=== PATIENT | female | born 1990 | race Caucasian/White ===

== ENCOUNTER 2024-11-11 19:53 | Emergency (ER) | payer BC, OTHER ==
[~2024-11-11] VITALS: Ht 167.6 cm; Wt 65.1 kg
[2024-11-11 20:32] VITALS: TEMP 97
--- NOTE | 2024-11-11 20:48 | Physician Documentation ---
History of Present Illness ~ Chief Complaint: Headache Stated Complaint: MIGRAINE Time Seen by MD: 20:51 OK to notify your PCP?: Yes Source: patient Mode of Arrival: POV Exam Limitations: no limitations HPI 34-year-old female presenting with left-sided migraine since 1:00 p.m. today. She has photophobia and nausea. She has a history of migraines and states this feels like her normal migraines. She attempted to take 1 dose of Imitrex at home but vomited it up. She also took Excedrin at home with no relief. She used to take Nurtec but that stopped working. She has been seen in the emergency department last year for migraines given IV fluids and a migraine cocktail which worked. Medication Reconciliation Allergies: Coded Allergies: No Known Allergies (Unverified , 11/11/24) Physical Exam Vital Signs: RN Vital Signs have been reviewed: Yes, Temperature: 97.0, Source: Temporal, Heart Rate: 101, Respiratory Rate: 16, BP: 122/81, Pulse Oximetry: 99, Weight: 65.100 Oxygen Flow Rate: 0 Pulse Oximetry Reflects: adequate oxygenation Physical Exam General: Alert, no apparent distress. HEENT: PERRL, EOMI, no injection, moist mucous membranes. Neck: Full range of motion. Respiratory: Lungs clear, no respiratory distress. Chest: No accessory muscle use. Cardiovascular: Regular rate and rhythm, no murmurs. Extremities: Normal range of motion, no deformity. Neurologic: Oriented x4. Psychiatric: Normal mood and affect. Skin: Normal color, warm and dry. No edema, no ecchymosis. Progress Results/Orders Results/Orders Orders - DENISA CRANE Saline Lock (11/11/24 ) Completed Orders - DENISA CRANE Diphenhydramine Inj (Benadryl Inj.) (11/11/24 20:55) Prochlorperazine Inj (Compazine Inj) (11/11/24 20:55) Dexamethasone Inj (Decadron 10mg/Ml Inj) (11/11/24 20:51) Normal Saline 1000ml (Sodium Chloride 10 (11/11/24 20:55) Medications Received in ER Medications (Trade) Dose Ordered Sig/Leni Route PRN Reason Start Time Stop Time Status Last Admin Dose Admin (Benadryl inj.) 50 mg ONCE ONCE IV 11/11/24 20:55 11/11/24 20:56 DC 11/11/24 21:10 50 MG (Compazine inj) 10 mg ONCE ONCE IV 11/11/24 20:55 11/11/24 20:56 DC 11/11/24 21:12 10 MG (Decadron 10mg/ ml inj) 10 mg ONCE STAT IV 11/11/24 20:51 11/11/24 20:53 DC 11/11/24 21:15 10 MG (sodium chloride 1000ml IV soln) 1,000 ml ONCE ONCE IVB 11/11/24 20:55 11/11/24 20:56 DC 11/11/24 21:09 1,000 ML Vital Signs 11/11/24 11/11/24 11/11/24 11/11/24 20:32 21:02 21:06 21:59 Temp 97.0 Pulse 101 81 86 Resp 16 16 16 15 B/P (MAP) 122/81 124/84 (97) 108/70 (83) Pulse Ox 99 98 98 O2 Flow Rate 0 0 0 Medical Decision Making Findings 34-year-old female presenting with left-sided migraine since 1:00 p.m. today. She states that this feels exactly the same as her normal migraines. She attempted to take Imitrex but vomited it up. She did take Excedrin with 0 relief. While in the department we gave a 1 L bolus of normal saline, Decadron, Compazine and Benadryl IV. After administration of the fluids, I just checked on her and she reports her migraine is gone and she feels relief. Using shared decision-making she feels comfortable with going home this evening. She has plans to follow up with her primary care provider to address changing her migraine medication to prevent further migraines. She should follow up with her primary care in the next 3 days or her next scheduled appointment and return back here for any new or worsening symptoms. Differential Dx:Considerations: Include: [place]-Hypertensive, Close head injuyr, CVA, Meningitis Departure Disposition: 01 HOME / SELF CARE / HOMELESS Impression: Primary Impression: Migraine Condition: Stable Discharge Instructions: Migraine Headache Additional Instructions: Please continue with your follow up appointment with her primary care regarding your home migraine medication management. Return back here for any new or worsening symptoms. Referrals: NO PRIMARY CARE PROVIDER (PCP) Education Educated: Patient, Family Educated regarding: diagnosis, treatment, prognosis, need for follow up Additional Comment Medical Screen Exam This patient recieved a medical screening examination. After reviewing the individual's medical complaints with presenting symptoms and performing an appropriate physical examination, it was determined that no emergency medical condition is present. This individual is also not a women having contractions. Signature Scribe Signature: . Attestation: Scribed for Denisa Crane Surg Rn by Denisa Mckeon NP . 11/11/24 22:42 DENISA CRANEP November 11, 2024 20:48
[2024-11-11] MEDS: normal saline 1000ML IV soln IVB ONE (21:09)
[2024-11-11] MEDS: diphenhydrAMINE 50 mg/ml inj IV ONE (21:10)
[2024-11-11] MEDS: proCHLORperazine 10 MG/2 ml inj IV ONE (21:12)
[2024-11-11] MEDS: dexamethasone sod phosphate 10mg/ml inj IV STA (21:15)
[2024-11-11 22:56] VITALS: BP 101/70; PULSE 82; RESP 16; O2SAT 97
== END 2024-11-11 23:02 | disposition home or self-care (01) ==
LOC: ER 19:53
DX: G43.909 Migraine, unspecified, not intractable, without status migrainosus (principal); R11.10 Vomiting, unspecified
CPT/HCPCS: 96361; 96374; 96375; 99284; J0780; J1100; J1200; J7030